=== PATIENT | male | born 1935 | race Caucasian/White ===

== ENCOUNTER 2017-11-29 16:28 | Emergency (ER) | payer MEDICARE, OTHER ==
[~2017-11-29] VITALS: Ht 182.9 cm; Wt 99.8 kg
[~2017-11-29 16:28] MED LIST: ACET325 PO; ALBIPROI INH; ATEN25 PO; CALC.25 PO; CALCA500CH PO; CYCL10 PO; DULO60 PO; FAMO20 PO; FEXPSEER; FEXPSEER PO; FLUT44OIA; HYDCHL25 PO; LISI20 PO; MULVITMIND PO; OMEP40CA12 PO; OXYACE5T PO; SIMV10 PO; Synthroid/Lev0.05 MG PO; TRAM50 PO; TYLENOL PM PO; XARELTO15 MG PO
[2017-11-29] MEDS ORDERED: CALC.25 PO (17:06)
[2017-11-29] MEDS ORDERED: NEBI5 PO (17:07)
[2017-11-29] MEDS ORDERED: TAMS.4ER PO (17:07)
[2017-11-29] MEDS ORDERED: Omnipred10 ML LEFTEYE (18:16)
== END 2017-11-29 18:29 | disposition home or self-care (01) ==
LOC: ER 16:28
DX: H20.9 Unspecified iridocyclitis (principal); I10 Essential (primary) hypertension; Z91.048 Other nonmedicinal substance allergy status; Z91.018 Allergy to other foods; Z79.899 Other long term (current) drug therapy; Z87.891 Personal history of nicotine dependence
CPT/HCPCS: 99283